=== PATIENT | male | born 1980 | race Caucasian/White ===

== ENCOUNTER 2016-09-10 21:40 | Emergency (ER) | payer SELFPAY ==
[2016-09-10 21:58] VITALS: TEMP 97.8; BMI 28.3
--- NOTE | 2016-09-10 22:45 | PDOC ---
History of Present Illness - General History Source: Patient Exam Limitations: No Limitations - History of Present Illness Initial Comments: 09/10/16 23:11 The patient is a 35 old male, with no significant past medical history, who presents to the emergency department with a laceration on the left lower extremity that occured 1 week ago. He states that he fears that it may be infected. He notes that he was doing yard work with a machete when he accidently hit his head. He reports pain from the area that is mild, without radiation or modifying factors. He does not remember his last tetanus shot. The patient denies chest pain, shortness of breath, headache and dizziness. Denies fever, chills, nausea, vomit, diarrhea and constipation. Allergies: None Past surgical history: None reported Social history: Alcohol and tobacco use. No drug use reported <Kei Littlejohn - Last Filed: 09/11/16 01:37> <Roney Vogel - Last Filed: 09/11/16 03:06> - General Chief Complaint: Redness To Affected Area Stated Complaint: INFECTION Time Seen by Provider: 09/10/16 22:17 Past History <Kei Littlejohn - Last Filed: 09/11/16 01:37> - Past Medical History Other medical history: denies - Psycho/Social/Smoking Cessation Hx Anxiety: No Suicidal Ideation: No Smoking History: Current every day smoker Number of Cigarettes Smoked Daily: 4 Information on smoking cessation initiated: No Hx Alcohol Use: No Drug/Substance Use Hx: No Substance Use Type: None <Roney Vogel - Last Filed: 09/11/16 03:06> - Past Medical History Allergies/Adverse Reactions: Allergies Allergy/AdvReac Type Severity Reaction Status Date / Time No Known Allergies Allergy Verified 09/10/16 21:58 Home Medications: Ambulatory Orders Amoxicillin/Potassium Clav [Augmentin 875-125 Tablet] 1 each PO BID #20 tablet 09/11/16 Review of Systems - Review of Systems Able to Perform ROS?: Yes Comments:: 09/10/16 23:12 CONSTITUTIONAL: No fever, no chills, no fatigue EYES: No visual changes ENT: No ear pain, no sore throat CARDIOVASCULAR: No chest pain, no palpitations RESPIRATORY: No cough, no SOB GI: No abdominal pain, no nausea, no vomiting, no constipation, no diarrhea GENITOURINARY: No dysuria, no frequency, no hematuria MUSKULOSKELETAL: No backpain, no joint pain, no myalgias SKIN: (+) Left lower extremity laceration. No rash NEURO: No headache <Kei Littlejohn - Last Filed: 09/11/16 01:37> *Physical Exam - Vital Signs Last Vital Signs Temp Pulse Resp BP Pulse Ox 97.8 F 71 18 143/72 99 09/10/16 21:54 09/10/16 21:54 09/10/16 21:54 09/10/16 21:54 09/10/16 21:54 <Kei Littlejohn - Last Filed: 09/11/16 01:37> - Vital Signs Last Vital Signs Temp Pulse Resp BP Pulse Ox 97.8 F 71 18 143/72 99 09/10/16 21:54 09/10/16 21:54 09/10/16 21:54 09/10/16 21:54 09/10/16 21:54 - Physical Exam Comments: 09/11/16 02:58 EXAMINATION CONSTITUTIONAL: Well-appearing; well-nourished; in no apparent distress HEAD: Normocephalic; atraumatic EYES: PERRL; EOM intact ENMT: External appears normal; normal oropharynx NECK: Supple; non-tender; no cervical lymphadenopathy CARD: Normal S1, S2; no murmurs, rubs, or gallops RESP: Normal chest excursion with respiration; breath sounds clear and equal bilaterally; no wheezes, rhonchi, or rales ABD: Soft, non-distended; non-tender; no palpable organomegaly, no palpable hernias EXT: LLE: + 2.5 cm laceration to the anterior aspect of the midtibia with surrounding soft tisue edema and mild erythema, healing by secondary intention, w/o evidence of lymphangitis or proximal lymphadenopathy; distal pulses intact SKIN: Warm, dry, no rash NEURO: No focal neurological deficiencies. <Roney Vogel - Last Filed: 09/11/16 03:06> ED Treatment Course - LABORATORY CBC & Chemistry Diagram: 09/10/16 23:14 09/10/16 23:14 <Kei Littlejohn - Last Filed: 09/11/16 01:37> - LABORATORY CBC & Chemistry Diagram: 09/10/16 23:14 09/10/16 23:14 <Ronye Vogel - Last Filed: 09/11/16 03:06> Medical Decision Making - Medical Decision Making 09/11/16 03:02 Patient is well-appearing 35-year-old male who presents with mild erythema and soft tissue swelling to the a mid anterior pretibial laceration that he sustained 1 week prior. The laceration appears to be healing by secondary intention and has developed mild cellulitis. In the ER, patient is awake and alert, afebrile, nontoxic appearing. CBC is within normal limit. CMP reveals minimally elevated creatinine of 1.5. Tib-fib x-ray reveals no evidence of foreign body or fracture. Patient has received a tetanus update and IV unasyn in the ER. I copiously irrigated the laceration apply topical bacitracin with a gauze dressing. Patient tolerated procedure well. Will discharge with wound care and by mouth Augmentin with clinic follow-up. <Roney Vogel - Last Filed: 09/11/16 03:06> *DC/Admit/Observation/Transfer - Attestations Scribe Attestion: 09/10/16 23:12 Documentation prepared by Kei Littlejohn, acting as medical screener for Roney Vogel MD <Kei Littlejohn - Last Filed: 09/11/16 01:37> - Attestations Physician Attestion: 09/11/16 02:55 The documentation was prepared by the scribe under my direct supervision. I have reviewed the documentation which correctly represents the findings, medical decision-making and critical action taken by me. <Roney Vogel - Last Filed: 09/11/16 03:06> Diagnosis at time of Disposition: Cellulitis and abscess of left lower extremity, Laceration - Discharge Dispostion Disposition: HOME Condition at time of disposition: Stable - Referrals Referrals: [facility] [Provider Group] - Patient Instructions Printed Discharge Instructions: DI for Cellulitis -- Adult, DI for Open Laceration
[2016-09-10] MEDS ORDERED: AMPICILLIN NA/SULBACTAM NA 3 GM in SODIUM CHLORIDE 100 ML IVPB ONE (22:51)
[2016-09-10] MEDS ORDERED: DIPHTH,PERTUSS(ACELL),TET 0.5 ML DISP.SYRIN IM ONE (22:51)
[2016-09-10 23:54] LABS: BASOPHIL 0.7 % (0-2.0); EOSINOPHIL 6.9 % (0-4.5); MCH 31.3 pg (25.7-33.7); MCHC 33.6 g/dl (32.0-35.9); MEAN CELL VOLUME 93.2 fl (80-96); MEAN PLT VOLUME 8.4 fl (7.5-11.1); NEUTROPHILS 51.6 % (42.8-82.8); PLATELET COUNT 280 K/MM3 (134-434); RDW 13.1 % (11.9-15.9); WHITE BLOOD COUNT 7.8 K/mm3 (4.0-10.0)
[2016-09-11 00:07] LABS: ALBUMIN 4.1 g/dl (3.4-5.0); ALK PHOS 64 U/L (45-117); ANION GAP 8 (8-16); BILIRUBIN,TOTAL 0.5 mg/dL (0.2-1.0); CALCIUM 8.9 mg/dL (8.5-10.1); CO2 31 mmol/L (21-32); CREATININE 1.5 mg/dL (0.7-1.3); GLUCOSE,RANDOM 100 mg/dL (74-106); SGOT/AST 33 U/L (15-37); SGPT/ALT 29 U/L (12-78); TOT PROT 7.1 g/dl (6.4-8.2)
[2016-09-11] MEDS ORDERED: LIDOCAINE 1%/EPI 1:100000 (50 ML MULTI DOSE VIAL) ONE (02:39)
[2016-09-11 03:20] VITALS: BP 136/74; PULSE 76
== END 2016-09-11 03:18 | disposition home or self-care (01) ==
LOC: JER 21:40
PROC: 3E03329 Introduction of Other Anti-infective into Peripheral Vein, Percutaneous Approach (ICD-10-PCS; principal; 2016-09-10)
PROC: 3E0234Z Introduction of Serum, Toxoid and Vaccine into Muscle, Percutaneous Approach (ICD-10-PCS; 2016-09-10)
DX: L03.116 Cellulitis of left lower limb (principal); L02.416 Cutaneous abscess of left lower limb
CPT/HCPCS: 36415; 73590-TC-LT; 80053; 85025; 90715; 99282-25